=== PATIENT | male | born 1985 | race Caucasian/White ===

== ENCOUNTER 2016-08-14 01:37 | Observation (INO) | payer BC ==
[2016-08-14] MEDS ORDERED: ONDANSETRON 4 MG/2 ML VIAL ONE (01:48)
[2016-08-14] MEDS ORDERED: NS 1,000 ML IV ONE (01:49)
[2016-08-14 01:59] LABS: % IMMATURE GRANULYOCYTES 0.4 % (0.0-1.1); ABSOLUTE IMMATURE GRANULOCYTES 0.03 10^3/uL (0.00-0.10); ADD DIFF? NO; ADD MORPH? NO; ADD SCAN? NO; ATYPICAL LYMPHOCYTE FLAG 0 (0-99); FRAGMENT RBC FLAG 0 (0-99); HEMATOCRIT 44.7 % (40.0-51.0); HEMOGLOBIN 15.2 g/dL (13.7-17.5); LEFT SHIFT FLG 0 (0-99); LIPEMIA HEMOLYSIS FLAG 90 (0-99); MEAN CELL HEMOGLOBIN 32.8 pg (27.9-34.1); MEAN CELL VOLUME 96.5 fL (81.5-99.8); MEAN PLATELET VOLUME 10.4 fL (8.7-11.7); PLATELET CLUMPS FLAG 0 (0-99); PLATELET COUNT 79 10^3/uL (150-400); RED BLOOD CELL COUNT 4.63 10^6/uL (4.40-6.38); RED CELL DISTRIBUTION WIDTH 12.1 % (11.5-15.2)
--- NOTE | 2016-08-14 02:07 | EDPHY ---
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 Apparently, the patient is visiting from out of town. He was taking a taxi from [place] to [place] when he began to have shaking activity. According to the residential driver, this lasted for about 4 minutes. Afterwards he was confused. His blood sugar was checked and was 200. The patient says that he has seizures, however with this episode, he did not bite his tongue. He is confused and cannot provide much further history. REVIEW OF SYSTEMS Constitutional: No fever, no chills. Eyes: No discharge. ENT: No sore throat. Cardiovascular: No chest pain, no palpitations. Respiratory: No cough, no shortness of breath. Gastrointestinal: No abdominal pain, no vomiting. Genitourinary: No hematuria. Musculoskeletal: No back pain. Skin: No rashes. Neurological: No headache. PMHx: Type 2 diabetes, hypertension, history of seizures, though says he is not on any medication Soc Hx: Visiting from [place], says he is here to see friends, daily alcohol use marijuana use PHYSICAL General Appearance: Alert, somewhat anxious and tremulous Eyes: Pupils equal and round no pallor or injection ENT, Mouth: Mucous membranes moist Respiratory: There are no retractions, lungs are clear to auscultation Cardiovascular: Tachycardic rate and regular rhythm Gastrointestinal: Abdomen is soft and non-tender, no masses, bowel sounds normal Neurological: A&O, moves all extremities Skin: Warm and dry, no rashes Musculoskeletal: Neck is supple non tender Extremities: symmetrical, full range of motion Psychiatric: Patient is oriented X 3, there is no agitation Source: Patient, EMS - Personal History Current Tetanus/Diphtheria Vaccine: Unsure Current Tetanus Diphtheria and Acellular Pertussis (TDAP): Unsure - Medical/Surgical History Hx Asthma: No Hx Chronic Respiratory Disease: No Hx Diabetes: Yes Hx Cardiac Disease: No Hx Renal Disease: No Hx Cirrhosis: No Hx Alcoholism: No Hx HIV/AIDS: No Hx Splenectomy or Spleen Trauma: No Other PMH: DM T2, SZ - Social History Smoking Status: Never smoked Constitutional: Initial Vital Signs Temperature (C) 37.0 C 08/14/16 01:54 Heart Rate 122 H 08/14/16 01:54 Respiratory Rate 16 08/14/16 01:54 Blood Pressure 139/102 H 08/14/16 01:54 O2 Sat (%) 94 08/14/16 01:54 O2 Delivery Mode Room Air Allergies/Adverse Reactions: No Known Allergies Allergy (Unverified 08/14/16 01:54) Medical Decision Making - Diagnostics Imaging Results: CT head without contrast is unremarkable, discussed with the radiologist application software developer. Differential Diagnosis: This is a 31-year-old male with no known past medical history who was brought in by ambulance for a seizure. He is now quite confused and tachycardic. Differential diagnosis includes seizure disorder with postictal phase, alcohol withdrawal, substance abuse, subdural hemorrhage. In the emergency room, the patient was monitored, he was given Ativan with some improvement in his symptoms, however continued to be confused. He walked into other patient's rooms, was speaking nonsensically. We were able to reach his father in [facility]. He says that he has a seizure disorder and is actually in [place] for an appointment with a neurologist. His seizures are poorly controlled, he is not taking any medication for them. He can have a prolonged postictal period. His father can come and pick him up at noon. I talked with Dr. lama, the hospitalist and we plan to admit the patient. I will repeat his lactate given his initial lactate elevation; this is likely due to seizure. We have also repleted his potassium. - Data Points Laboratory Results: Laboratory Results 08/14/16 01:30 08/14/16 01:30 08/14/16 08/14/16 08/14/16 02:45 02:00 01:30 WBC RBC Hgb Hct MCV MCH MCHC RDW Plt Count MPV Neut % (Auto) Lymph % (Auto) [place] % (Auto) Eos % (Auto) Baso % (Auto) Nucleat RBC Rel Count Absolute Neuts (auto) Absolute Lymphs (auto) Absolute Monos (auto) Absolute Eos (auto) Absolute Basos (auto) Absolute Nucleated RBC Immature Gran % Immature Gran # PT 14.7 SEC SEC (12.0-15.0) INR 1.15 (0.83-1.16) APTT Cancelled VBG Lactic Acid 6.5 mmol/L H mmol/L (0.7-2.1) Sodium Potassium Chloride Carbon Dioxide Anion Gap BUN Creatinine Estimated GFR Glucose Calcium Magnesium Total Bilirubin Conjugated Bilirubin Unconjugated Bilirubin AST ALT Alkaline Phosphatase Total Protein Albumin Urine Opiates Screen NEGATIVE (NEGATIVE) Urine Barbiturates NEGATIVE (NEGATIVE) Phenytoin Ur Phencyclidine Scrn NEGATIVE (NEGATIVE) Ur Amphetamine Screen NEGATIVE (NEGATIVE) U Benzodiazepines Scrn NEGATIVE (NEGATIVE) Urine Cocaine Screen NEGATIVE (NEGATIVE) U Marijuana (THC) Screen NON-NEGATIVE H (NEGATIVE) Ethyl Alcohol 08/14/16 08/14/16 08/14/16 01:30 01:30 01:30 WBC 8.24 10^3/uL 10^3/uL (3.80-9.50) RBC 4.63 10^6/uL 10^6/uL (4.40-6.38) Hgb 15.2 g/dL g/dL (13.7-17.5) Hct 44.7 % % (40.0-51.0) MCV 96.5 fL fL (81.5-99.8) MCH 32.8 pg pg (27.9-34.1) MCHC 34.0 g/dL g/dL (32.4-36.7) RDW 12.1 % % (11.5-15.2) Plt Count 79 10^3/uL L 10^3/uL (150-400) MPV 10.4 fL fL (8.7-11.7) Neut % (Auto) 71.6 % % (39.3-74.2) Lymph % (Auto) 15.2 % % (15.0-45.0) [place] % (Auto) 11.7 % % (4.5-13.0) Eos % (Auto) 0.7 % % (0.6-7.6) Baso % (Auto) 0.4 % % (0.3-1.7) Nucleat RBC Rel Count 0.0 % % (0.0-0.2) Absolute Neuts (auto) 5.91 10^3/uL 10^3/uL (1.70-6.50) Absolute Lymphs (auto) 1.25 10^3/uL 10^3/uL (1.00-3.00) Absolute Monos (auto) 0.96 10^3/uL H 10^3/uL (0.30-0.80) Absolute Eos (auto) 0.06 10^3/uL 10^3/uL (0.03-0.40) Absolute Basos (auto) 0.03 10^3/uL 10^3/uL (0.02-0.10) Absolute Nucleated RBC 0.00 10^3/uL 10^3/uL (0-0.01) Immature Gran % 0.4 % % (0.0-1.1) Immature Gran # 0.03 10^3/uL 10^3/uL (0.00-0.10) PT INR APTT VBG Lactic Acid Sodium 141 mEq/L mEq/L (134-144) Potassium 3.0 mEq/L L mEq/L (3.5-5.2) Chloride 103 mEq/L mEq/L (97-110) Carbon Dioxide 10 mEq/l L mEq/l (22-31) Anion Gap 28 mEq/L H mEq/L (8-16) BUN 4 mg/dL L mg/dL (7-23) Creatinine 0.8 mg/dL mg/dL (0.7-1.3) Estimated GFR > 60 Glucose 205 mg/dL H mg/dL (70-100) Calcium 9.9 mg/dL mg/dL (8.5-10.4) Magnesium Pending Total Bilirubin 2.8 mg/dL H mg/dL (0.1-1.4) Conjugated Bilirubin 1.1 mg/dL H mg/dL (0.0-0.5) Unconjugated Bilirubin 1.7 mg/dL H mg/dL (0.0-1.1) AST 193 IU/L H IU/L (17-59) ALT 75 IU/L H IU/L (21-72) Alkaline Phosphatase 148 IU/L H IU/L (38-126) Total Protein 8.7 g/dL H g/dL (6.3-8.2) Albumin 5.0 g/dL g/dL (3.5-5.0) Urine Opiates Screen Urine Barbiturates Phenytoin Pending Ur Phencyclidine Scrn Ur Amphetamine Screen U Benzodiazepines Scrn Urine Cocaine Screen U Marijuana (THC) Screen Ethyl Alcohol < 10 mg/dL mg/dL (0-10) Medications Given: Discontinued Medications Sodium Chloride (Ns) 1,000 mls @ 0 mls/hr IV ONCE ONE; Wide Open PRN Reason: Protocol Stop: 08/14/16 01:50 Last Admin: 08/14/16 02:16 Dose: 1,000 mls Lorazepam (Ativan Injection) 1 mg IVP EDNOW ONE Stop: 08/14/16 02:21 Last Admin: 08/14/16 02:32 Dose: 1 mg Lorazepam (Ativan Injection) 1 mg IVP EDNOW ONE Stop: 08/14/16 03:01 Last Admin: 08/14/16 03:07 Dose: 1 mg Ondansetron HCl (Zofran) 4 mg IVP EDNOW ONE Stop: 08/14/16 02:33 Last Admin: 08/14/16 02:33 Dose: 4 mg Potassium Chloride (Klor-Con) 40 meq PO EDNOW ONE Stop: 08/14/16 03:02 Last Admin: 08/14/16 03:07 Dose: 40 meq Thiamine HCl (Vitamin B-1) 100 mg PO EDNOW ONE Stop: 08/14/16 04:42 Last Admin: 08/14/16 05:00 Dose: 100 mg Departure - Departure Disposition: [facility] Acute Clinical Impression: Seizure, Lactic acid acidosis, Hypokalemia Condition: Good
[2016-08-14 02:09] LABS: ALANINE AMINOTRANSFERASE 75 IU/L (21-72); ALKALINE PHOSPHATASE 148 IU/L (38-126); ANION GAP 28 mEq/L (8-16); BILIRUBIN,TOTAL 2.8 mg/dL (0.1-1.4); CALCIUM 9.9 mg/dL (8.5-10.4); CARBON DIOXIDE 10 mEq/l (22-31); CHLORIDE 103 mEq/L (97-110); CREATININE 0.8 mg/dL (0.7-1.3); ETHANOL SERUM < 10 mg/dL (0-10); GLOMERULAR FILTRATION RATE > 60; GLUCOSE 205 mg/dL (70-100); SODIUM 141 mEq/L (134-144); TOTAL PROTEIN 8.7 g/dL (6.3-8.2)
[2016-08-14 02:15] LABS: ASPARTATE AMINOTRANSFERASE 193 IU/L (17-59)
[2016-08-14] MEDS ORDERED: LORazepam 2 MG/ML INJ IVP ONE ×2 (02:20→03:00)
[2016-08-14 02:31] LABS: BILIRUBIN-CONJUGATED 1.1 mg/dL (0.0-0.5); BILIRUBIN-UNCONJUGATED 1.7 mg/dL (0.0-1.1)
[2016-08-14] MEDS ORDERED: ONDANSETRON 4 MG/2 ML VIAL IVP ONE (02:32)
[2016-08-14] MEDS ORDERED: POTASSIUM CL 20 MEQ TAB PO ONE (03:01)
[2016-08-14] MEDS ORDERED: THIAMINE HCL 100 MG TAB PO ONE (04:41)
[2016-08-14] MEDS ORDERED: ONDANSETRON 4 MG/2 ML VIAL IVP PRN (05:49)
[2016-08-14] MEDS ORDERED: ONDANSETRON DISINTEGRATING 4 MG TAB PO PRN (05:49)
[2016-08-14] MEDS ORDERED: LORazepam 2 MG/ML INJ IVP PRN (05:49)
[2016-08-14] MEDS ORDERED: ACETAMINOPHEN 325 MG TAB PO PRN (05:49)
[2016-08-14] MEDS ORDERED: NS 1,000 ML IV SCH (06:00)
--- NOTE | 2016-08-14 06:12 | PDGENHP ---
History and Physical - Chief Complaint seizure - History of Present Illness Patient is a 31 year old male with known seizure disorder on dilantin, chronic alcohol use who was brought to the ED after a seizure. Patient was apparently in an Uber driving from [place] to [place] when he became unresponsive and had was is described as a generalized tonic clonic seizure. Seizure movements lasted about 4 minutes and resolved spontaneously. Afterwards, patient remained lethargic and confused and was brought to the ED for further evaluation. Patient does report daily alcohol use of at least 6 beers per day, generally more on the weekends. He is not able to provide more clear detailed history at this time. Denies any recent fevers, chills, cough, shortness of breath, chest pain, nausea, vomiting or diarrhea. On arrival to the patient was afebrile and hemodynamically stable. He remained confused, oriented to person, but not place or date, appeared to be confabulating on questioning. Labs revealed an anion gap acidosis and elevated LA at 6.5, consistent with recent seizure, also thrombocytopenia, transaminitis , elevated bilirubin. CT head was negative for any acute abnormalities. ED physician was able to contact patient's father, who lives in [place], and he states that patient does have seizure disorder, and post-ictal state is characterized by confusion more than lethargy. He was not able to provide specifics regarding patient's alcohol intake. Patient was then admitted for further evaluation. History Information - Allergies/Home Medication List Allergies/Adverse Reactions: No Known Allergies Allergy (Unverified 08/14/16 01:54) I have personally reviewed and updated: family history, medical history, social history, surgical history - Past Medical History Additional medical history: seizure disorder. chronic alcohol use - Surgical History Reports: cholecystectomy - Family History Positive for: non-pertinent - Social History Smoking Status: Never smoked Alcohol Use: Heavy (6-12 beers daily) Drug Use: Marijuana Additional social history: Patient visiting friends in [place], originally from [place] Review of Systems ROS: 10pt was reviewed & negative except for what was stated in HPI & below Physical Exam Temp Pulse Resp BP Pulse Ox 37.0 C 99 16 141/66 H 96 08/14/16 01:54 08/14/16 05:19 08/14/16 05:19 08/14/16 05:19 08/14/16 05:19 Constitutional: no apparent distress, appears nourished, not in pain Eyes: PERRL, anicteric sclera, EOMI Ears, Nose, Mouth, Throat: hearing normal, ears appear normal, no oral mucosal ulcers, dry mucous membranes Cardiovascular: regular rate and rhythym, no murmur, rub, or gallop, No JVD, No edema Peripheral Pulses: 2+: dorsalis-pedis (R), dorsalis-pedis (L) Respiratory: no respiratory distress, no rales or rhonchi, clear to auscultation Gastrointestinal: normoactive bowel sounds, soft, non-tender abdomen, no palpable masses, No guarding, No rebound, No distension Genitourinary: no bladder fullness, no bladder tenderness Skin: warm, normal color, no rashes or abrasions, no fluctuance, no induration, No mottled Musculoskeletal: full muscle strength, no muscle tenderness, normal joint ROM, no joint effusions Neurologic: sensation intact bilaterally, CN II-XII Intact, other (oriented to person, not place or date; follows commands and is confused but redirectable; fine distal tremor present), No weakness, No numbness, No pronator drift Psychiatric: encephalopathic (confabulating answers to questions) Lab Data & Imaging Review 08/14/16 01:30 08/14/16 01:30 WBC 8.24 10^3/uL (3.80-9.50) 08/14/16 01:30 RBC 4.63 10^6/uL (4.40-6.38) 08/14/16 01:30 Hgb 15.2 g/dL (13.7-17.5) 08/14/16 01:30 Hct 44.7 % (40.0-51.0) 08/14/16 01:30 MCV 96.5 fL (81.5-99.8) 08/14/16 01:30 MCH 32.8 pg (27.9-34.1) 08/14/16 01:30 MCHC 34.0 g/dL (32.4-36.7) 08/14/16 01:30 RDW 12.1 % (11.5-15.2) 08/14/16 01:30 Plt Count 79 10^3/uL (150-400) L 08/14/16 01:30 MPV 10.4 fL (8.7-11.7) 08/14/16 01:30 Neut % (Auto) 71.6 % (39.3-74.2) 08/14/16 01:30 Lymph % (Auto) 15.2 % (15.0-45.0) 08/14/16 01:30 [place] % (Auto) 11.7 % (4.5-13.0) 08/14/16 01:30 Eos % (Auto) 0.7 % (0.6-7.6) 08/14/16 01:30 Baso % (Auto) 0.4 % (0.3-1.7) 08/14/16 01:30 Nucleat RBC Rel Count 0.0 % (0.0-0.2) 08/14/16 01:30 Absolute Neuts (auto) 5.91 10^3/uL (1.70-6.50) 08/14/16 01:30 Absolute Lymphs (auto) 1.25 10^3/uL (1.00-3.00) 08/14/16 01:30 Absolute Monos (auto) 0.96 10^3/uL (0.30-0.80) H 08/14/16 01:30 Absolute Eos (auto) 0.06 10^3/uL (0.03-0.40) 08/14/16 01:30 Absolute Basos (auto) 0.03 10^3/uL (0.02-0.10) 08/14/16 01:30 Absolute Nucleated RBC 0.00 10^3/uL (0-0.01) 08/14/16 01:30 Immature Gran % 0.4 % (0.0-1.1) 08/14/16 01:30 Immature Gran # 0.03 10^3/uL (0.00-0.10) 08/14/16 01:30 VBG Lactic Acid 6.5 mmol/L (0.7-2.1) H 08/14/16 02:00 Sodium 141 mEq/L (134-144) 08/14/16 01:30 Potassium 3.0 mEq/L (3.5-5.2) L 08/14/16 01:30 Chloride 103 mEq/L (97-110) 08/14/16 01:30 Carbon Dioxide 10 mEq/l (22-31) L 08/14/16 01:30 Anion Gap 28 mEq/L (8-16) H 08/14/16 01:30 BUN 4 mg/dL (7-23) L 08/14/16 01:30 Creatinine 0.8 mg/dL (0.7-1.3) 08/14/16 01:30 Estimated GFR > 60 08/14/16 01:30 Glucose 205 mg/dL (70-100) H 08/14/16 01:30 Calcium 9.9 mg/dL (8.5-10.4) 08/14/16 01:30 Total Bilirubin 2.8 mg/dL (0.1-1.4) H 08/14/16 01:30 Conjugated Bilirubin 1.1 mg/dL (0.0-0.5) H 08/14/16 01:30 Unconjugated Bilirubin 1.7 mg/dL (0.0-1.1) H 08/14/16 01:30 AST 193 IU/L (17-59) H 08/14/16 01:30 ALT 75 IU/L (21-72) H 08/14/16 01:30 Alkaline Phosphatase 148 IU/L (38-126) H 08/14/16 01:30 Total Protein 8.7 g/dL (6.3-8.2) H 08/14/16 01:30 Albumin 5.0 g/dL (3.5-5.0) 08/14/16 01:30 Urine Opiates Screen NEGATIVE (NEGATIVE) 08/14/16 02:45 Urine Barbiturates NEGATIVE (NEGATIVE) 08/14/16 02:45 Ur Phencyclidine Scrn NEGATIVE (NEGATIVE) 08/14/16 02:45 Ur Amphetamine Screen NEGATIVE (NEGATIVE) 08/14/16 02:45 U Benzodiazepines Scrn NEGATIVE (NEGATIVE) 08/14/16 02:45 Urine Cocaine Screen NEGATIVE (NEGATIVE) 08/14/16 02:45 U Marijuana (THC) Screen NON-NEGATIVE (NEGATIVE) H 08/14/16 02:45 Ethyl Alcohol < 10 mg/dL (0-10) 08/14/16 01:30 Visualized and Interpreted imaging results: Yes Interpretation: CT head: no acute abnormalitites Assessment & Plan Assessment: Patient is a 31 year old male with known seizure disorder who presents to the ED after a witnessed GTC seizure that lasted approximately 4 minutes and was associated with post-ictal confusion/encephalopathy. ED evaluation reveals elevated LA, electrolyte abnormalities, normal CT head. Plan: # seizure Patient is reported to have had a witnessed GTC seizure; elevated lactic acid that has rapidly cleared is consistent with this. Seizure may be breakthrough seizure related to his reported underlying epilepsy or due to acute alcohol withdrawal (drinks at least 6 beers daily, etoh level negative on presentation) . CT head is negative for acute abnormalities and patient is nonfocal on exam, but is demonstrating signs of alcohol withdrawal. No signs of infection as precipitating factor. Will check a Dilantin level and give loading dose if low. Will also provide ativan prn ciwa. # lactic/anion gap metabolic acidosis Likely due to acute seizure. No signs/symptoms of infection, no leukocytosis. Lactic acid has normalized after 1 L bolus. Will repeat BMP also to ensure normalization of bicarb. Also hypokalemic on BMP, will check Mg and replete with protocol prn. # thrombocytopenia Plts 79 on admission cbc. Unknown if new or chronic. May be related to chronic alcohol use/liver dysfunction. No obvious signs of bleeding at this time. Will continue to trend. # transaminitis, hyperbilirubinemia Also may be related to chronic alcohol use. Patient reports he is s/p cholecystectomy. Will check abdominal US and trend LFTs. # chronic alcohol use Patient with mild withdrawal symptoms on my assessment. Unclear if seizure is related to known seizure disorder or due to alcohol withdrawal. Will place on ciwa, supplement thiamine/folate/mvn and provide ativan prn ciwa protocol. # dispo: admit to observation status. Patient's father is flying in from [place] , will arrive by midday and will reassess dispo options at that time. # gen: regular diet DVT ppx: lovenox Full code
[2016-08-14 06:52] LABS: INR 1.15 (0.83-1.16); PROTIME(PATIENT) 14.7 SEC (12.0-15.0)
[2016-08-14 06:54] LABS: MAGNESIUM 1.9 mg/dL (1.6-2.3)
[2016-08-14 07:37] VITALS: RESP 18
[2016-08-14] MEDS ORDERED: PHENYTOIN SODIUM 1,000 MG in NS 100 ML IV ONE (07:52)
[2016-08-14] MEDS ORDERED: ENOXAPARIN 40 MG/0.4 ML SYR SC SCH (09:00)
[2016-08-14] MEDS ORDERED: MULTIVITAMINS 1 EACH TAB PO SCH (09:00)
[2016-08-14] MEDS ORDERED: FOLIC ACID 1 MG TAB PO SCH (09:00)
[2016-08-14] MEDS ORDERED: THIAMINE HCL 100 MG TAB PO SCH (09:00)
[2016-08-14 10:32] LABS: COLOR YELLOW; LEUKOCYTE ESTERASE,URINE NEGATIVE (NEGATIVE); NITRITE,URINE NEGATIVE (NEGATIVE)
--- NOTE | 2016-08-14 11:28 | GDS ---
[f rep st] DISCHARGE SUMMARY DISCHARGE DIAGNOSES: 1. Seizure. 2. Alcohol abuse. 3. Alcoholic hepatitis. HISTORY: This is a 31-year-old male who presented with a grand mal seizure. He does have a history of previous seizures. He has not been taking any of his medications. HOSPITAL COURSE: The patient was admitted and was postictal initially. This has resolved. When he woke up, he states that he is not taking his medicines. He does not feel like he is in alcohol wit hdrawal. He does want to go home when his father comes to pick him up. This is reasonable. Yobany swain discharge him home with a prescription for Keppra which he had been on prior. DISPOSITION: Home. DISCHARGE MEDICATIONS: He is to resume Keppra. FOLLOWUP INSTRUCTIONS: He is instructed to follow up with primary care doctor. TIME SPENT: Greater than 30 minutes was spent on discharge. /[id number]/MODL
[2016-08-14 12:03] VITALS: BP 137/87; PULSE 65; TEMP 98.2; O2SAT 94
== END 2016-08-14 15:41 | disposition home or self-care (01) ==
LOC: F3N 06:25
PROVIDERS: ADMIT Internal Medicine; ATTEND Internal Medicine
DX: G40.909 Epilepsy, unspecified, not intractable, without status epilepticus (principal); F10.10 Alcohol abuse, uncomplicated; K70.10 Alcoholic hepatitis without ascites; E87.2 Acidosis; E87.6 Hypokalemia; R74.0 Nonspecific elevation of levels of transaminase and lactic acid dehydrogenase [LDH]; D69.6 Thrombocytopenia, unspecified; Z91.14 Patient's other noncompliance with medication regimen; E11.9 Type 2 diabetes mellitus without complications; I10 Essential (primary) hypertension
CPT/HCPCS: 70450; 76700; G0378; 80305; 96374; G0480; J1650; J2060; J2405